=== PATIENT | male | born 1980 | race Caucasian/White ===

== ENCOUNTER 2019-07-22 12:50 | Outpatient (CLI) | payer MEDICAID, OTHER ==
[2019-07-22 18:02] LABS: BASOPHILS % (AUTO) 0.4 %; EOSINOPHILS # (AUTO) 0.2 10^3/uL (0.0-0.7); HGB - HEMOGLOBIN 15.4 g/dL (14.0-18.0); LYMPHOCYTES # (AUTO) 1.9 10^3/uL (1.5-3.5); LYMPHOCYTES % (AUTO) 21.2 %; MEAN CORPUSCULAR HEMOGLOBIN 29.1 pg (27.0-31.0); MEAN CORPUSCULAR HGB CONC 32.6 g/dL (32.0-36.0); MEAN CORPUSCULAR VOLUME 89.2 fL (80.0-94.0); MONOCYTES # (AUTO) 0.5 10^3/uL (0.0-1.0); MONOCYTES % (AUTO) 5.6 %; NEUTROPHILS # (AUTO) 6.4 10^3/uL (1.5-6.6); NEUTROPHILS % (AUTO) 70.4 %; PLT - PLATELET COUNT 437 10^3/uL (130-450); RED CELL DISTRIBUTION WIDTH 11.9 % (12.0-15.0); WHITE BLOOD COUNT 9.1 x10^3/uL (4.8-10.8)
[2019-07-22 18:25] LABS: PSA FREE 0.26 ng/mL (0.16-2.81); PSA TOTAL 1.61 ng/mL (0.000-2.000)
[2019-07-22 18:29] LABS: ALBUMIN 4.7 g/dL (3.2-5.5); ALBUMIN/GLOBULIN RATIO 1.2 (1.0-2.2); ALKALINE PHOSPHATASE 67 IU/L (42-121); ALT ALANINE AMINOTRANSFERASE 31 IU/L (10-60); AST ASPARTATE AMINOTRANSFERASE 21 IU/L (10-42); BILIRUBIN,TOTAL 0.7 mg/dL (0.2-1.0); BUN - BLOOD UREA NITROGEN 24 mg/dL (6-20); CALCIUM 9.3 mg/dL (8.5-10.3); CARBON DIOXIDE - CO2 27 mmol/L (21-32); CHLORIDE 98 mmol/L (101-111); CHOL/HDL RATIO 7.2 (<5.0); CHOLESTEROL 252 mg/dL; CREATININE 0.9 mg/dL (0.6-1.2); GLUCOSE 96 mg/dL (70-100); HDL CHOLESTEROL 35 mg/dL; LDL CHOLESTEROL,CALCULATED 168 mg/dL; LDL/HDL RATIO 4.8 (<3.6); SODIUM 135 mmol/L (135-145); TOTAL PROTEIN 8.5 g/dL (6.7-8.2); VLDL CHOLESTEROL 49 mg/dL
== END 2019-07-22 23:59 | disposition home or self-care (01) ==
LOC: LAB.WCP 12:50
PROVIDERS: ATTEND Registered Nurse
DX: Z80.42 Family history of malignant neoplasm of prostate (principal); M25.50 Pain in unspecified joint; E66.09 Other obesity due to excess calories
CPT/HCPCS: 36415; 80050; 80061; 83721; 84153; 84154

== ENCOUNTER 2019-07-24 09:07 | Outpatient (CLI) | payer OTHER ==
[2019-07-24 13:54] LABS: BILIRUBIN,URINE NEGATIVE (NEGATIVE); GLUCOSE, URINE (UA) NEGATIVE (NEGATIVE); KETONES,URINE (UA) NEGATIVE (NEGATIVE); LEUKOCYTE ESTERASE, URINE NEGATIVE (NEGATIVE); NITRITE,URINE NEGATIVE (NEGATIVE); OCCULT BLOOD,URINE NEGATIVE (NEGATIVE); PROTEIN,URINE NEGATIVE (NEGATIVE); UROBILINOGEN,URINE 0.2 (NORMAL) E.U./dL (NORMAL)
[2019-07-24 14:05] LABS: BACTERIA,URINE Rare /HPF (None Seen); CLARITY,URINE CLEAR (CLEAR); RBC,URINE 0-5 /HPF (0-5); SQUAMOUS EPITHELIAL CELL,UR NONE SEEN (<= Few)
[2019-07-24 14:14] LABS: HCG,QUALITATIVE BLOOD NEGATIVE
== END 2019-07-24 23:59 | disposition home or self-care (01) ==
LOC: LAB.WCP 09:07
PROVIDERS: ATTEND Registered Nurse
DX: N50.9 Disorder of male genital organs, unspecified (principal)
CPT/HCPCS: 36415; 81001; 82105; 83615; 84703; 87086

== ENCOUNTER 2021-12-13 15:12 | Outpatient (CLI) | payer BC ==
--- NOTE | 2021-12-13 19:10 | XRAY Report ---
PROCEDURE: Knee 3 View LT INDICATIONS: PAIN IN LEFT KNEE TECHNIQUE: 3 views of the left knee(s) were acquired. COMPARISON: None. FINDINGS: Bones: Joint space is maintained without osteophytosis or subchondral sclerosis. No fractures or dis locations. No suspicious bony lesions. Soft tissues: No joint effusion. No suspicious soft tissue calcifications. IMPRESSION: No acute findings or significant degenerative change. Reviewed by: Frank Sierra MD on 12/13/2021 7:08 PM PDT Approved by: Frank Sierra MD on 12/13/2021 7:08 PM PDT Station ID: [id number]
== END 2021-12-13 15:13 | disposition home or self-care (01) ==
LOC: DI 15:12
PROVIDERS: ATTEND Nurse Practitioner Family
DX: M25.562 Pain in left knee (principal)

== ENCOUNTER 2021-12-19 19:03 | Outpatient (CLI) | payer BC ==
--- NOTE | 2021-12-21 10:19 | Ultrasound Report ---
PROCEDURE: Testicle INDICATIONS: TESTICULAR MASS TECHNIQUE: Real-time scanning was performed of the scrotum and testicles, with image documentation. Color and p ulse Doppler interrogation was performed of both testicles. COMPARISON: No images. Report from a prior ultrasound dated 08/01/2019 FINDINGS: Right: Testicle is normal in size at 4.0 x 2.2 x 2.9 cm, and homogenous in echotexture. Epididymis is normal in overall size and morphology. A small simple hydrocele. No varicoceles. Overlying scrota l skin is normal in thickness. Left: Testicle is normal in size at 4.1 x 2.4 x 2.5 cm, and homogeneous in echotexture. Epididymis is normal in overall size and morphology. Small to moderate simple hydrocele. No varicoceles. Overl leonor scrotal skin is normal in thickness. Doppler: Color and pulse Doppler demonstrate normal and symmetric arterial flow in both testicles. IMPRESSION: 1. Bilateral [id number] simple hydroceles. 2. No testicular mass. Reviewed by: Veronica Tillman MD on 12/21/2021 9:18 AM [email or web address] Approved by: Veronica Tillman MD on 12/21/2021 9:18 AM JIMENEZ Station ID: [id number]
== END 2021-12-19 19:04 | disposition home or self-care (01) ==
LOC: DI 19:03
PROVIDERS: ATTEND Nurse Practitioner Family
DX: N43.3 Hydrocele, unspecified (principal)

== ENCOUNTER 2023-05-31 10:38 | Outpatient (CLI) | payer BC | END 2023-05-31 10:39 | disposition home or self-care (01) | LOC: NS 10:38 | PROVIDERS: ATTEND Internal Medicine | DX: Z71.3 Dietary counseling and surveillance (principal); E78.2 Mixed hyperlipidemia; E66.09 Other obesity due to excess calories; Z68.33 Body mass index [BMI] 33.0-33.9, adult | CPT/HCPCS: 97802 ==